=== PATIENT | female | born 1970 | race Two or more races ===

== ENCOUNTER → 2024-06-07 | Outpatient (CLI) | payer MEDICAID, SELFPAY ==
--- NOTE | 2024-06-07 15:30 | XR_ITS ---
Examination: Pelvic ultrasound, transabdominal, complete Technique: Transabdominal ultrasound of the pelvis performed using grayscale imaging Date and time of exam: June 07, 2024 1543 hours INDICATIONS: Left lower pelvic pain beginning 3 weeks ago, hysterectomy FINDINGS: Absent uterus Right ovary 2.6 cm arterial flow Left ovary 4.6 cm arterial flow, 3.6 x 2.6 x 3.2 cm simple cyst IMPRESSION: Left ovarian simple cyst 3.6 x 2.6 x 3.2 cm
--- NOTE | 2024-06-07 15:30 | XR_ITS ---
Examination: Abdomen sonogram, complete Date and time of exam: June 07, 2024 1550 hours INDICATIONS: Epigastric pain constipation beginning 3 weeks ago. Technique: Multiple real-time grayscale transabdominal sonographic images of the abdomen have been obtained. Findings: Normal gallbladder Normal common bile duct 0.2 cm Pancreatic head 2.5 cm Aorta not enlarged Liver 12.8 cm fatty infiltration smooth contour Normal hepatopedal portal venous flow Patent IVC Right kidney 10.5 cm renal cortex 1.4 cm Left kidney 10.6 cm renal cortex 1.6 cm Mild bilateral renal scar formation Spleen 9.1 cm IMPRESSION: Normal gallbladder Fatty liver Mild bilateral renal parenchymal scar formation
== END | disposition home or self-care (01) ==
PROVIDERS: PCP Physician Assistant; Referring Provider Physician Assistant; Visit Provider Physician Assistant
DX: N83.292 Other ovarian cyst, left side (principal); K76.0 Fatty (change of) liver, not elsewhere classified; N28.89 Other specified disorders of kidney and ureter
CPT/HCPCS: 76700; 76856

== ENCOUNTER → 2024-10-17 | Outpatient (CLI) | payer MEDICAID, SELFPAY ==
--- NOTE | 2024-10-17 16:00 | XR_ITS ---
Examination: CT chest, without intravenous contrast. Sagittal and coronal 2-D reconstructions. Exam date and time: October 17, 2024 1557 hours Comparison August 23, 2023 INDICATIONS: 27 mm thick-walled cavitary lesion right upper lobe on CT chest August 23, 2023 CTDI:vol (mGy) 8.46 DLP: (mGycm) 268 Technique: Multiple 3.0 mm axial sections of the chest to been obtained. Bone and lung density settings are obtained. Sagittal and coronal 2-D reconstructions have been obtained. Low dose protocols were performed. One or more of the following dose reduction techniques were used; automated exposure control, adjustment of the mA and/or KV according to patient size, use of iterative reconstruction technique. Findings: 10 mm right thyroid nodule No thoracic cardiac aneurysm dilatation Pulmonary artery segments are not enlarged. No paratracheal tracheobronchial or bronchopulmonary adenopathy Stable 27 mm thick-walled cavitary lesion right upper lobe No new pulmonary nodules No pleural disease No focal liver or splenic lesions Contracted gallbladder No pancreatic mass IMPRESSION: Stable 27 mm thick-walled cavitary lesion right upper lobe
== END | disposition home or self-care (01) ==
LOC: CCTX 15:33
PROVIDERS: PCP Physician Assistant; Referring Provider Internal Medicine; Visit Provider Internal Medicine
DX: R91.1 Solitary pulmonary nodule (principal)
CPT/HCPCS: 71250